=== PATIENT | female | born 1955 | race Caucasian/White ===

== ENCOUNTER 2023-11-23 05:42 | Inpatient (IN) | payer OTHER ==
[~2023-11-23] VITALS: Ht 157.5 cm; Wt 98.6 kg
[~2023-11-23 05:42] MED LIST: METO-325 PO; RINGERS SOLUTION,LACTATED 1,000 ML IV ONE
[2023-11-23] MEDS ORDERED: METO25 PO (06:15)
[2023-11-23] MEDS: ETHYL ALCOHOL 62% ANTISEPTIC NASAL SANITIZER 0.6 ML AMPUL NASAL ONE (06:31)
[2023-11-23] MEDS: CHLORHEXIDINE GLUCONATE 2% TOWELETTE [2'S/6'S] TP ONE (06:31)
[2023-11-23] MEDS: RINGERS SOLUTION,LACTATED 1,000 ML IV ONE (06:31)
[2023-11-23] MEDS ORDERED: BUPIVACAINE LIPOSOME/PF 1.3%-13.3MG/ML SUSP 20 ML VIAL INJ ONE ×2 (07:15→08:00)
[2023-11-23] MEDS ORDERED: SODIUM CL IRRIG SOLN BAG 3,000 ML IRRIG ONE (07:21)
[2023-11-23] MEDS ORDERED: BACITRACIN 28 GM OINTMENT TP ONE (07:22)
[2023-11-23] MEDS ORDERED: TRANEXAMIC ACID 1,000 MG/10 ML VIAL ONE (07:22)
[2023-11-23] MEDS: VANCOMYCIN HCL 1 GM VIAL ONE (07:30)
[2023-11-23] MEDS ORDERED: RINGERS SOLUTION,LACTATED 1,000 ML IV ONE (08:41)
[2023-11-23] MEDS: BUPIVACAINE LIPOSOME/PF 1.3%-13.3MG/ML SUSP 20 ML VIAL INJ ONE (09:43)
[2023-11-23] MEDS: BUPIVACAINE HCL/PF 0.25% 30 ML VIAL ONE (09:43)
[2023-11-23] MEDS ORDERED: CeFAZolin 2 GM/DEXTROSE 50 ML IV SCH (10:00)
[2023-11-23] MEDS ORDERED: BISACODYL 10 MG RECTAL RECTAL SUPPOSITORY PR PRN (10:00)
[2023-11-23] MEDS ORDERED: MAG HYDROX/ALUMINUM HYD/SIMETH 30 ML SUSPENSION UDCUP PO PRN (10:00)
[2023-11-23] MEDS ORDERED: DiphenhydrAMINE HCL 50 MG/ML VIAL IVP PRN (10:00)
[2023-11-23] MEDS ORDERED: ACETAMINOPHEN 1000 MG/ISO-OSM 100 ML IV ONE (11:58)
[2023-11-23] MEDS ORDERED: HYDROmorphone HCL 2 MG/ML SYRINGE ONE (11:58)
[2023-11-23] MEDS ORDERED: MIDAZOLAM HCL 2 MG/2 ML VIAL IVP ONE (12:00)
[2023-11-23] MEDS ORDERED: LIDOCAINE/PF 2% 5 ML VIAL IM ONE (12:00)
[2023-11-23] MEDS ORDERED: CeFAZolin SODIUM 1 GM VIAL IVP ONE (12:00)
[2023-11-23] MEDS ORDERED: PROPOFOL 1% ISO-OSM 1000 MG/100 ML BOTTLE IV ONE (12:00)
[2023-11-23] MEDS ORDERED: ROCURONIUM BROMIDE 10 MG/ML 5 ML VIAL IVP ONE (12:00)
[2023-11-23] MEDS ORDERED: KETAMINE HCL 50 MG/ML 10 ML VIAL IVP ONE (12:00)
[2023-11-23] MEDS ORDERED: KETOROLAC TROMETHAMINE 60 MG/2 ML VIAL IM ONE (12:00)
[2023-11-23] MEDS ORDERED: ONDANSETRON HCL 4 MG/2 ML VIAL IVP ONE (12:00)
[2023-11-23] MEDS: ACETAMINOPHEN 1000 MG/ISO-OSM 100 ML IV SCH (12:00)
[2023-11-23] MEDS: HYDROmorphone HCL 2 MG/ML SYRINGE IVP PRN (12:01)
[2023-11-23] MEDS ORDERED: ACETAMINOPHEN 325 MG TABLET PO PRN (13:15)
[2023-11-23] MEDS ORDERED: MAGNESIUM HYDROXIDE SUSPENSION 30 ML UDCUP PO PRN (13:15)
[2023-11-23] MEDS ORDERED: FentaNYL CITRATE PF 100 MCG/2 ML VIAL ONE (13:49)
[2023-11-23] MEDS: FentaNYL CITRATE PF 100 MCG/2 ML VIAL IVP PRN (13:50)
[2023-11-23] MEDS ORDERED: OxyCODONE HCL 5 MG IR TABLET PO PRN (16:30)
[2023-11-23] MEDS ORDERED: SODIUM CHLORIDE 0.9% 500 ML IV ONE (16:38)
[2023-11-23 17:18] VITALS: BP 125/61; PULSE 69; RESP 18; TEMP 97.7; O2SAT 97
[2023-11-23] MEDS: OxyCODONE HCL 5 MG IR TABLET PO PRN (17:23)
[2023-11-23] MEDS: CeFAZolin 2 GM/DEXTROSE 50 ML IV SCH (18:41)
[2023-11-23] MEDS: ONDANSETRON HCL 4 MG/2 ML VIAL IVP PRN (19:41)
[2023-11-23] MEDS: OXYGEN THERAPY IH SCH (19:45)
[2023-11-23] MEDS: DOCUSATE SODIUM 100 MG CAPSULE PO SCH (19:45)
[2023-11-23 19:58] VITALS: BP 143/59; PULSE 72; RESP 18; TEMP 97.7; O2SAT 95
[2023-11-23] MEDS ORDERED: DOCUSATE SODIUM 100 MG CAPSULE PO SCH (21:00)
[2023-11-23] MEDS ORDERED: FAMOTIDINE 20 MG TABLET PO SCH (21:00)
[2023-11-23] MEDS: METOPROLOL TARTRATE 25 MG TABLET PO SCH (22:28)
[2023-11-23 23:02] LABS: APPEARANCE,URINE CLEAR (CLEAR); BILIRUBIN,URINE NEGATIVE (NEGATIVE); COLOR,URINE LIGHT YELLOW (YELLOW); GLUCOSE, URINE (UA) NEGATIVE (NEGATIVE); KETONES,URINE NEGATIVE (NEGATIVE); LEUKOCYTE ESTERASE ,URINE NEGATIVE (NEGATIVE); NITRATE,URINE NEGATIVE (NEGATIVE); OCCULT BLOOD,URINE NEGATIVE (NEGATIVE); PROTEIN,URINE TRACE mg/dL (NEGATIVE); SPECIFIC GRAVITIY, URINE 1.037 (1.003-1.030); UROBILINOGEN,URINE <=1.0 mg/dL (<=1.0)
[2023-11-24 05:03] VITALS: BP 118/56; PULSE 74; RESP 20; TEMP 97.7; O2SAT 96
[2023-11-24 06:51] LABS: BASOPHILS % (AUTO) 0.1 % (0.0-2.0); EOSINOPHILS % (AUTO) 0 % (1.0-6.0); HEMATOCRIT 39.5 % (36-46); LYMPHOCYTES # (AUTO) 1.5 K/uL (1.0-4.8); LYMPHOCYTES % (AUTO) 10.6 % (22.0-44.0); MEAN CORPUSCULAR HEMOGLOBIN 30.9 pg (26.0-34.0); MEAN CORPUSCULAR VOLUME 94 fL (80-100); MONOCYTES # (AUTO) 1.1 K/uL (0.1-1.0); NEUTROPHILS # (AUTO) 11.4 K/uL (1.8-7.7); NEUTROPHILS % (AUTO) 81.3 % (40.0-70.0); PLATELET COUNT (AUTO) 258 K/uL (150-450); RED BLOOD CELL COUNT(AUTO) 4.22 MIL/uL (4.00-5.20); RED CELL DISTRIBUTION WIDTH 13.8 % (11.5-14.5)
[2023-11-24 07:01] LABS: CALCIUM, TOTAL 8.3 mg/dL (8.8-10.5); CREATININE 1.04 mg/dL (0.60-1.30); POTASSIUM 4.3 mmol/L (3.5-5.1)
[2023-11-24 08:05] VITALS: BP 106/55; PULSE 66; RESP 20; TEMP 98.4; O2SAT 96
[2023-11-24] MEDS: ASPIRIN 81 MG CHEWABLE TABLET PO SCH (08:28)
[2023-11-24] MEDS: FAMOTIDINE 20 MG TABLET PO SCH (08:28)
[2023-11-24 17:05] VITALS: BP 112/58; PULSE 70; RESP 20; TEMP 97.9; O2SAT 98
[2023-11-24 19:42] VITALS: BP 136/69; PULSE 84; RESP 20; TEMP 98.1; O2SAT 100
[2023-11-25 00:10] VITALS: BP 121/63; PULSE 76; RESP 18; TEMP 98.2; O2SAT 99
[2023-11-25 07:39] LABS: BASOPHILS % (AUTO) 0.4 % (0.0-2.0); EOSINOPHILS % (AUTO) 0.8 % (1.0-6.0); HEMATOCRIT 38.7 % (36-46); LYMPHOCYTES % (AUTO) 19.4 % (22.0-44.0); MEAN CORPUSCULAR HEMOGLOBIN 31.5 pg (26.0-34.0); MEAN CORPUSCULAR HGB CONC 33.7 G/dL (31.0-37.0); MEAN CORPUSCULAR VOLUME 93 fL (80-100); MONOCYTES # (AUTO) 1.3 K/uL (0.1-1.0); MONOCYTES % (AUTO) 12.6 % (2.0-9.0); NEUTROPHILS % (AUTO) 66.8 % (40.0-70.0); PLATELET COUNT (AUTO) 237 K/uL (150-450); RED BLOOD CELL COUNT(AUTO) 4.14 MIL/uL (4.00-5.20); RED CELL DISTRIBUTION WIDTH 14.1 % (11.5-14.5); WHITE BLOOD COUNT (AUTO) 10.4 K/uL (4.5-11.0)
[2023-11-25] MEDS: ETHYL ALCOHOL 62% ANTISEPTIC NASAL SANITIZER 0.6 ML AMPUL NASAL SCH (08:00)
[2023-11-25 08:17] VITALS: BP 134/60; PULSE 83; RESP 20; TEMP 97.8; O2SAT 96
[2023-11-25] MEDS ORDERED: ASPI-1450 PO (14:19)
[2023-11-25] MEDS ORDERED: DOCU-385 PO (14:20)
[2023-11-25] MEDS ORDERED: FAMO20 PO (14:21)
[2023-11-25] MEDS ORDERED: ACET-2247 PO (14:22)
[2023-11-25] MEDS ORDERED: OXYC5 PO (14:23)
[2023-11-25 15:53] VITALS: BP 133/64; PULSE 81; RESP 20; TEMP 98.4; O2SAT 98
== END 2023-11-25 17:27 | DRG 470 ==
LOC: 5S 05:42 → 4E 14:18
PROVIDERS: ADMIT Orthopaedic Surgery; ATTEND Orthopaedic Surgery
PROC: 0SRD0J9 Replacement of Left Knee Joint with Synthetic Substitute, Cemented, Open Approach (ICD-10-PCS; principal; 2023-11-23 07:30)
DX: M17.12 Unilateral primary osteoarthritis, left knee (principal); I10 Essential (primary) hypertension; E66.01 Morbid (severe) obesity due to excess calories; Z68.39 Body mass index [BMI] 39.0-39.9, adult; Z79.82 Long term (current) use of aspirin; Z90.710 Acquired absence of both cervix and uterus; Z96.651 Presence of right artificial knee joint
CPT/HCPCS: 80048; 81003; 85025; 87081; 87147; 88300; 97110; 97162; 97166; 97530; C9290; G0378; J0131; J0690; J1170; J1885; J2250; J2405; J2704; J3010; J3370; J3490; J7040; J7120